=== PATIENT | female | born 1980 | race Caucasian/White ===

== ENCOUNTER → 2016-08-22 | Outpatient (CLI) | payer OTHER | LOC: LAB 13:18 | DX: I48.91 Unspecified atrial fibrillation (principal); Q20.1 Double outlet right ventricle; Z98.890 Other specified postprocedural states | CPT/HCPCS: 36415; 85520 ==

== ENCOUNTER → 2020-10-24 | Outpatient (CLI) | payer OTHER | LOC: RT 16:34 | DX: I47.1 Supraventricular tachycardia (principal); I45.10 Unspecified right bundle-branch block; R94.31 Abnormal electrocardiogram [ECG] [EKG] | CPT/HCPCS: 93005 ==